=== PATIENT | female | born 1950 | race Caucasian/White ===

== ENCOUNTER 2022-01-21 11:29 | Outpatient (CLI) | payer MEDICARE, BC | END 2022-01-21 11:30 | disposition home or self-care (01) | LOC: LAB.S 11:29 | PROVIDERS: ATTEND Internal Medicine | DX: M85.80 Other specified disorders of bone density and structure, unspecified site (principal); Z78.0 Asymptomatic menopausal state | CPT/HCPCS: 82306 ==

== ENCOUNTER 2023-04-08 08:00 | Outpatient (CLI) | payer MEDICARE, BC ==
[2023-04-08 20:53] LABS: BILIRUBIN,URINE NEGATIVE (NEGATIVE); GLUCOSE, URINE (UA) NEGATIVE (NEGATIVE); KETONES,URINE (UA) NEGATIVE (NEGATIVE); LEUKOCYTE ESTERASE, URINE SMALL (NEGATIVE); NITRITE,URINE NEGATIVE (NEGATIVE); OCCULT BLOOD,URINE NEGATIVE (NEGATIVE); PROTEIN,URINE NEGATIVE (NEGATIVE); UROBILINOGEN,URINE 0.2 (NORMAL) E.U./dL (NORMAL)
[2023-04-08 20:54] LABS: CLARITY,URINE CLEAR (CLEAR)
[2023-04-08 21:31] LABS: BACTERIA,URINE Moderate /HPF (None Seen); RBC,URINE 0-5 /HPF (0-5); SQUAMOUS EPITHELIAL CELL,UR FEW Squamous (<= Few)
== END 2023-04-08 23:59 | disposition home or self-care (01) ==
LOC: LAB.S 08:00
PROVIDERS: ATTEND Internal Medicine
DX: R30.0 Dysuria (principal)
CPT/HCPCS: 81001; 87086; 87181

== ENCOUNTER 2024-09-01 12:05 | Inpatient (IN) ==
--- NOTE | 2024-09-01 12:35 | ED Physician Documentation ---
History of Present Illness Stated complaint Stated Complaint: ABD PX Chief complaint Chief Complaint: Abd Pain History obtained from History obtained from: Patient Additonal information Additional information: This is an otherwise very healthy 74-year-old woman. Last colonoscopy 4 years ago with incidental finding of diverticulosis. About 2 weeks ago she had a days worth of right leg pain associate with fevers and chills. That got better and was fine again until about 2 days ago when she has developed crampy lower abdominal pain associated with gassiness and frequent stools without overt diarrhea. The fevers and chills have not returned. No history of abdominal surgeries. Meds/Allgy Home Medications Ambulatory Orders Medication Instructions Recorded Confirmed estradiol 0.01% (0.1 mg/gram) 0.5 g vaginal .COMPLEX # 42.5 grams 08/09/24 09/01/24 vaginal cream Allergies Allergies Allergy/AdvReac Type Severity Reaction Status Date / Time No Known Drug Allergies Allergy Verified 09/01/24 12:26 PFSH Active Problems All Active Problems (Updated 09/01/24 @ 14:35 by Santana Penny MD) Diverticular disease of intestine with perforation and abscess (Acute) Abdominal pain (Acute) Dysuria (Acute) Pelvic floor instability (Acute) Social History Social History (Updated 09/01/24 @ 11:29 by Orlin Mensah DO) Smoking Status: Unknown if ever smoked Do you feel safe in your home environment?: Yes Suffered physical, verbal, emotional, or financial abuse?: No Exam Exam Vital Signs: Vital Signs x48h Temp Pulse Resp BP Pulse Ox 09/01/24 12:18 37.1 C 81 16 124/67 99 Constitutional normal general appearance and no apparent distress Respiratory breath sounds equal bilaterally, normal respiratory effort and clear to auscultation bilaterally Cardiovascular normal heart rate noted, regular rhythm noted and no murmur Gastrointestinal Mild lower abdominal tenderness without surgical signs. Results Vitals Vitals: Vital Signs - 24 hr 09/01/24 12:18 Temperature 37.1 C Temperature Source Temporal Artery Scan Pulse Rate 81 Respiratory Rate 16 Blood Pressure 124/67 O2 Saturation 99 O2 Source Room air Pain Intensity 5 Oxygen O2 Source Room air Labs Labs: Laboratory Tests 09/01/24 09/01/24 12:36 12:50 WBC 13.0 H RBC 4.24 Hgb 12.0 Hct 37.2 MCV 87.7 MCH 28.3 MCHC 32.3 RDW 13.9 Plt Count 399 MPV 9.7 Neut # (Auto) 10.3 H Lymph # (Auto) 1.5 [place] # (Auto) 1.1 H Eos # (Auto) 0.0 Baso # (Auto) 0.1 Absolute Nucleated RBC 0.00 Nucleated RBC % 0.0 Sodium 134 L Potassium 3.5 Chloride 99 L Carbon Dioxide 25 Anion Gap 10.0 BUN 12 Creatinine 0.7 Estimated GFR (MDRD) 82 L Glucose 108 H Calcium 9.7 Total Bilirubin 0.8 AST 15 ALT 11 Alkaline Phosphatase 87 Total Protein 7.9 Albumin 4.2 Globulin 3.7 Albumin/Globulin Ratio 1.1 Lipase 19 Urine Color DARK YELLOW Urine Clarity CLEAR Urine pH 6.0 Ur Specific [place] 1.025 Urine Protein 30 H Urine Glucose (UA) NEGATIVE Urine Ketones TRACE Urine Occult Blood TRACE-LYSE Urine Nitrite NEGATIVE Urine Bilirubin SMALL H Urine Urobilinogen 2 H Ur Leukocyte Esterase TRACE H Urine RBC 0-5 Urine WBC 4-5 Ur Squamous Epith Cells MOD Squamous H Urine Bacteria Few Urine Mucus Moderate Strands Ur Microscopic Review INDICATED Urine Culture Comments NOT INDICATED PD Medical Decision Making ED course ED course: This is a very healthy 74-year-old woman who had an episode of pelvic and right leg pain associate with fevers and chills 2 weeks ago and then was well again until she developed pelvic pain again a couple of days ago. Really pretty benign exam and white count of 13,000. CT imaging demonstrating diverticular abscess measuring up to 3.7 cm. Radiologist feeling it could be IR drain if indicated. Case discussed by phone with Dr. Ramirez, our on-call surgeon around 2:25 PM and he will follow along noting that it it is of borderline size for needing drainage at this time. Spoke with Dr. Junior for admission at 2:35 PM. She [place]osyn from [place]. The patient and family are counseled as to the diagnosis and need for admission. This document was made in part using voice recognition software, while efforts are made to proofread this document, sound alike an grammatical errors may occur. Discharge Plan Discharge Patient Disposition: [facility] DC/Xfer Condition: Serious Clinical Impression: Diverticular disease of intestine with perforation and abscess Prescriptions: No Action estradiol 0.01 % (0.1 mg/gram) cream 0.5 g vaginal .COMPLEX Qty: 42.5 0RF Rx Instructions: 0.5 grams vaginally three nights per week Print Language: Barbadian
--- OUTSIDE RECORDS SUMMARY | 2024-09-01 12:36 | EXTERNAL MEDICAL SUMMARY RPT | Continuity of Care Document ---
Author Organization [facility] Address [address] [place] [id number] Phone Problems date description facility 2024-09-01 12:26 Unspecified abdominal pain id [facility] Social History date description facility
[2024-09-01 12:49] LABS: BILIRUBIN,URINE SMALL (NEGATIVE); CLARITY,URINE CLEAR (CLEAR); GLUCOSE, URINE (UA) NEGATIVE (NEGATIVE); KETONES,URINE (UA) TRACE mg/dL (NEGATIVE); LEUKOCYTE ESTERASE, URINE TRACE (NEGATIVE); NITRITE,URINE NEGATIVE (NEGATIVE); OCCULT BLOOD,URINE TRACE-LYSE (NEGATIVE); PROTEIN,URINE 30 mg/dL (NEGATIVE); UROBILINOGEN,URINE 2 E.U./dL (NORMAL)
[2024-09-01 12:56] LABS: BASOPHILS # (AUTO) 0.1 10^3/uL (0.0-0.1); BASOPHILS % (AUTO) 0.5 %; EOSINOPHILS % (AUTO) 0.2 %; HCT - HEMATOCRIT 37.2 % (37.0-47.0); LYMPHOCYTES # (AUTO) 1.5 10^3/uL (1.5-3.5); LYMPHOCYTES % (AUTO) 11.1 %; MEAN CORPUSCULAR HEMOGLOBIN 28.3 pg (27.0-31.0); MEAN CORPUSCULAR HGB CONC 32.3 g/dL (32.0-36.0); MEAN CORPUSCULAR VOLUME 87.7 fL (81.0-99.0); MEAN PLATELET VOLUME 9.7 fL (7.9-10.8); MONOCYTES # (AUTO) 1.1 10^3/uL (0.0-1.0); MONOCYTES % (AUTO) 8.7 %; NEUTROPHILS # (AUTO) 10.3 10^3/uL (1.5-6.6); NEUTROPHILS % (AUTO) 79.2 %; PLT - PLATELET COUNT 399 10^3/uL (130-450); RED BLOOD COUNT 4.24 10^6/uL (4.20-5.40); RED CELL DISTRIBUTION WIDTH 13.9 % (12.0-15.0)
[2024-09-01 12:58] LABS: BACTERIA,URINE Few /HPF (None Seen); MUCUS,URINE Moderate Strands; RBC,URINE 0-5 /HPF (0-5); SQUAMOUS EPITHELIAL CELL,UR MOD Squamous (<= Few)
[2024-09-01 13:12] LABS: ALBUMIN 4.2 g/dL (3.2-5.5); ALBUMIN/GLOBULIN RATIO 1.1 (1.0-2.2); BILIRUBIN,TOTAL 0.8 mg/dL (0.2-1.0); CALCIUM 9.7 mg/dL (8.5-10.3); CREATININE 0.7 mg/dL (0.6-1.3); POTASSIUM 3.5 mmol/L (3.5-4.5); TOTAL PROTEIN 7.9 g/dL (6.4-8.9)
[2024-09-01] MEDS ORDERED: iohexoL-300 100 ML VIAL ONE (13:20)
[2024-09-01] MEDS: iohexoL-300 100 ML VIAL IVP ONE (13:49)
--- NOTE | 2024-09-01 14:12 | CT Report ---
PROCEDURE: CT Abdomen/Pelvis W INDICATIONS: IV only, low abd pain CONTRAST: omni 300, 100 TECHNIQUE: After the administration of intravenous contrast, a CT scan of the abdomen and pelvis was performed. Images were recorded and evaluated at appropriate window settings. Reformats: coronal and sagittal. For radiation dose reduction, the following was used: automated exposure control, adjustment of mA and/or kV according to patient size. COMPARISON: None. FINDINGS: Image quality: Diagnostic. Lower chest: Unremarkable. Liver: No solid mass. Gallbladder: Within normal limits. Biliary tree: No intrahepatic or extrahepatic dilation, accounting for age. Spleen: No splenomegaly. Pancreas: No pancreatic ductal dilation. Adrenals: No adrenal nodule. Kidneys and ureters: No hydronephrosis. No renal cystic lesion which requires follow up. No solid mass. Stomach, bowel and peritoneum: Moderate wall thickening can be seen involving the rectosigmoid colon, with an adjacent rim-enhancing fluid collection. The fluid collection measures 3.7 x 2.8 cm in greatest axial dimension, the cranial caudal extent of 3.4 cm.. No angela free air can be seen. No significant free fluid is seen. A marker is placed upon the area of pain. At this site, no fractures are seen. No fractures or dislocations are seen elsewhere. No suspicious bony lesions. Age-appropriate degenerative changes are seen. The overlying soft tissues appear unremarkable. Proximal No dilated loops of small bowel are seen. Lymph nodes: No central or retroperitoneal adenopathy. Vessels: No infrarenal aortic aneurysm. Patent portal vein. PELVIS Reproductive organs: Unremarkable. Bladder: No abnormal wall thickening. Pelvic lymph nodes: No pelvic adenopathy by size criteria. Bones: No aggressive osseous abnormality. Minimal levoconvex lumbar spinal curvature is seen. Lower lumbar spine degenerative changes are seen. Other: No significant ventral or inguinal hernia. IMPRESSION: Perforated diverticulitis, with an associated abscess measuring up to 3.7 cm. This abscess is potentially drainable percutaneously, with a right transgluteal approach. Note: HIPAA-compliant text message sent to the cellular phone of Dr. Penny at 2:10 PM [place] time on 09/01/2024. Reviewed by: John Russo MD on 09/01/2024 1:11 PM [facility] Approved by: John Russo MD on 09/01/2024 1:11 PM [facility] Station ID: [id number]
[2024-09-01] MEDS: PIPERACILLIN/TAZOBACTAM 3.375 GM in SODIUM CHLORIDE 0.9% MINIBAG 100 ML IV STA (14:17)
[2024-09-01] MEDS ORDERED: SODIUM CHLORIDE FLUSH 0.9% 10 ML SYRINGE IVP PRN (15:04)
[2024-09-01] MEDS ORDERED: ONDANSETRON ODT 4 MG TABLET TL PRN (15:04)
[2024-09-01] MEDS ORDERED: MORPHINE 2 MG/ML CARPUJECT IVP PRN (15:04)
--- NOTE | 2024-09-01 15:13 | PROVIDER PROGRESS NOTE ---
Subjective Prog Note Date Prog Note Date: 09/01/24 Prog Note Time: 15:13 Current Medications Current Medications Current Medications: Current Medications Generic Name Dose Route Start Last Admin Trade Name Freq PRN Reason Stop Dose Admin Acetaminophen 650 mg 09/01/24 15:04 Acetaminophen 325 Mg Tablet PO Q4HR PRN Pain 1 to 4, or Fever Piperacillin Sod/Tazobactam 100 mls @ 200 mls/hr 09/01/24 16:00 Sod 3.375 gm/ Sodium Chloride IV Q6H POLA Morphine Sulfate 2 mg 09/01/24 15:04 Morphine 2 Mg/Ml Carpuject IVP Q2HR PRN Pain 8 to 10 Ondansetron HCl 4 mg 09/01/24 15:04 Ondansetron Odt 4 Mg Tablet TL Q6HR PRN Nausea / Vomiting Oxycodone HCl 5 mg 09/01/24 15:04 Oxycodone 5 Mg Tablet PO Q4HR PRN Pain 5 to 7 Sodium Chloride 10 ml 09/01/24 15:04 Sodium Chloride Flush 0.9% 10 Ml Syringe IVP PRN PRN NEEDED PER PROVIDER ORDERS Sodium Chloride 10 ml 09/01/24 17:00 Sodium Chloride Flush 0.9% 10 Ml Syringe IVP 0100,0900,1700 [facility] Objective Vital Signs/Intake & Output Vital Signs: Vital Signs x48h Temp Pulse Resp BP Pulse Ox 09/01/24 14:26 86 16 119/64 99 09/01/24 12:18 37.1 C 81 16 124/67 99 Intake & Output: Intake & Output 08/29/24 08/30/24 08/31/24 09/01/24 23:59 23:59 23:59 23:59 Intake Total 100 / 100 Balance 100 / 100 Weight (kg) 55.792 kg Lab Results 09/01/24 12:50 09/01/24 12:50 Other Labs: Lab Results x24hrs 09/01/24 09/01/24 Range/Units 12:50 12:36 WBC 13.0 H (4.8-10.8) x10^3/uL RBC 4.24 (4.20-5.40) 10^6/uL Hgb 12.0 (12.0-16.0) g/dL Hct 37.2 (37.0-47.0) % MCV 87.7 (81.0-99.0) fL MCH 28.3 (27.0-31.0) pg MCHC 32.3 (32.0-36.0) g/dL RDW 13.9 (12.0-15.0) % Plt Count 399 (130-450) 10^3/uL MPV 9.7 (7.9-10.8) fL Neut # (Auto) 10.3 H (1.5-6.6) 10^3/uL Lymph # (Auto) 1.5 (1.5-3.5) 10^3/uL [place] # (Auto) 1.1 H (0.0-1.0) 10^3/uL Eos # (Auto) 0.0 (0.0-0.7) 10^3/uL Baso # (Auto) 0.1 (0.0-0.1) 10^3/uL Absolute Nucleated RBC 0.00 x10^3/uL Nucleated RBC % 0.0 /100WBC Sodium 134 L (135-145) mmol/L Potassium 3.5 (3.5-4.5) mmol/L Chloride 99 L (101-111) mmol/L Carbon Dioxide 25 (21-32) mmol/L Anion Gap 10.0 (6-13) BUN 12 (6-20) mg/dL Creatinine 0.7 (0.6-1.3) mg/dL Estimated GFR (MDRD) 82 L (>89) Glucose 108 H (74-104) mg/dL Calcium 9.7 (8.5-10.3) mg/dL Total Bilirubin 0.8 (0.2-1.0) mg/dL AST 15 (10-42) IU/L ALT 11 (10-60) IU/L Alkaline Phosphatase 87 (42-121) IU/L Total Protein 7.9 (6.4-8.9) g/dL Albumin 4.2 (3.2-5.5) g/dL Globulin 3.7 (2.1-4.2) g/dL Albumin/Globulin Ratio 1.1 (1.0-2.2) Lipase 19 (11-82) U/L Urine Color DARK YELLOW Urine Clarity CLEAR (CLEAR) Urine pH 6.0 (5.0-7.5) PH Ur Specific [place] 1.025 (1.002-1.030) Urine Protein 30 H (NEGATIVE) mg/dL Urine Glucose (UA) NEGATIVE (NEGATIVE) mg/dL Urine Ketones TRACE (NEGATIVE) mg/dL Urine Occult Blood TRACE-LYSE (NEGATIVE) Urine Nitrite NEGATIVE (NEGATIVE) Urine Bilirubin SMALL H (NEGATIVE) Urine Urobilinogen 2 H (NORMAL) E.U./dL Ur Leukocyte Esterase TRACE H (NEGATIVE) Urine RBC 0-5 (0-5) /HPF Urine WBC 4-5 (0-5) /HPF Ur Squamous Epith Cells MOD Squamous H (<= Few) Urine Bacteria Few (None Seen) /HPF Urine Mucus Moderate Strands Ur Microscopic Review INDICATED Urine Culture Comments NOT INDICATED
--- NOTE | 2024-09-01 15:17 | HISTORY & PHYSICAL EXAMINATION ---
Chief Complaint Chief Complaint Chief Complaint: Abdominal pain History of Present Illness Admitted From Admitted From:: ED History Obtained From Records Reviewed: ED History obtained from: Patient, Dr. Zartae - ED attending Exam Limitations: none History of Present Illness HPI Comment/Other: Patient is a healthy 74-year-old female with a PMH of diverticulosis who presents to the ED with a 2-day history of right lower quadrant abdominal pain that radiates into the right groin. This follows a series of similar episodes over the last few weeks that was initially associated with fever that only lasted for 1 day followed by improvement of the abdominal pain then intermittent returns. Patient states the pain is moderate to severe at times, and intermittent and crampy in nature. It is not alleviated with any particular thing or aggravated by any particular thing. With the exception of the fever almost 2 weeks ago, she has not had any other associated fever along with that. She denies any nausea or vomiting. Denies any GI history or previous abdominal surgeries. She denies any prior episodes of diverticulitis. Here in the ED, the patient was hemodynamically stable. Her lab work was remarkable for a WBC of [address] abdomen pelvis does show evidence of a perforated diverticular abscess measuring approximately 3 cm. ED attending consulted general surgery regarding this finding and it was determined that surgical intervention was not immediately necessary. The radiologist did comment that this abscess would be amenable to IR drainage in the ED attending, Dr. Godfrey, discussed this with the radiologist on-call and he confirmed that if necessary this could be done at this facility, but per surgery otherwise this could be managed with IV antibiotics and the patient was started on IV Zosyn in the ED and admission was requested. Meds/Allgy Home Medications Ambulatory Orders Medication Instructions Recorded Confirmed estradiol 0.01% (0.1 mg/gram) 0.5 g vaginal .COMPLEX # 42.5 grams 08/09/24 09/01/24 vaginal cream Allergies Allergies Allergy/AdvReac Type Severity Reaction Status Date / Time No Known Drug Allergies Allergy Verified 09/01/24 12:26 PFSH Active Problems All Active Problems (Updated 09/01/24 @ 15:50 by Russel Junior MD) Diverticular disease of intestine with perforation and abscess (Acute) Abdominal pain (Acute) Dysuria (Acute) Pelvic floor instability (Acute) Social History Social History (Updated 09/01/24 @ 11:29 by SEVERO Kirkpatrick Smoking Status: Unknown if ever smoked Do you feel safe in your home environment?: Yes Suffered physical, verbal, emotional, or financial abuse?: No POLST Patient has POLST: No POLST Status: Full Code Review of Systems Status of ROS: 10 or more systems reviewed and unremarkable except as noted in history and below Prior Level of Functionality: At baseline she is healthy, independent, and lives alone Exam Exam Vital Signs: Vital Signs x48h Temp Pulse Resp BP Pulse Ox 09/01/24 14:26 86 16 119/64 99 09/01/24 12:18 37.1 C 81 16 124/67 99 Constitutional normal general appearance HENMT normocephalic and head/scalp atraumatic Eyes PERRL and EOMs intact bilaterally Neck/C-Spine visual inspection normal Respiratory breath sounds equal bilaterally, normal respiratory effort, clear to auscultation bilaterally and no wheezes Cardiovascular normal heart rate noted, no gallop, no rub and no murmur Gastrointestinal abdomen soft to palpation Genitourinary no CVA tenderness Extremities normal to inspection Neurology electronics repair technician II-XII intact Psychiatry mental status grossly normal and oriented x3 Skin skin color normal Conclusion/Plan Problem List (1) Diverticular disease of intestine with perforation and abscess: Plan: * Patient is not septic and is hemodynamically stable * WBC is 13 remainder of labs are reassuring * CT scan of the abdomen does confirm perforated diverticulum with a relatively small abscess which per radiology is amenable to drainage should the patient progress in such a manner to warrant the procedure * This has been discussed with general surgery as well as radiology by the ED attending * I also discussed interventional radiology drainage with the patient and she prefers to avoid procedure if at all possible * Having said this, we will admit the patient to MedSurg, continue IV Zosyn, follow her clinically with serial labs and abdominal exams with as needed pain meds and antiemetics * Most likely I will keep her n.p.o. after midnight tomorrow night in anticipation of the potential for need for interventional radiology drainage on Tuesday and if patient clinically improves to the extent this is no longer needed, we will continue with antibiotic management (2) Abdominal pain: Plan: * Secondary to above, continue as needed pain meds as stated Qualifiers: Abdominal location: right lower quadrant Qualified Code(s): R10.31 - Right lower quadrant pain Lab Results Lab results reviewed: Yes 09/01/24 12:50 09/01/24 12:50 Diagnostic Imaging Results Diagnostic Imaging Results: positive Final report reviewed EKG Results EKG Interpreted Independently: Yes
[2024-09-01] MEDS: ACETAMINOPHEN 325 MG TABLET PO PRN (15:34)
--- NOTE | 2024-09-01 17:10 | CONSULTATION NOTE ---
Chief Complaint Chief Complaint Chief Complaint: abdominal pain History of Present Illness Admitted From Admitted From:: ed History Obtained From Records Reviewed: yes History obtained from: pt Exam Limitations: none History of Present Illness HPI Comment/Other: waxing and waning abdominal pain for about a month. at times she was ok and able to eat ok. she thought she may have had norovirus. a couple days ago she had a fever and pain was worse. seen in the ed. ct scan diverticulitis with 4 cm pelvic abscess. colonoscopy 4 years ago diverticulosis and no polyps PFSH Active Problems All Active Problems (Updated 09/01/24 @ 15:50 by Russel Junior MD) Diverticular disease of intestine with perforation and abscess (Acute) Abdominal pain (Acute) Dysuria (Acute) Pelvic floor instability (Acute) Social History Social History (Updated 09/01/24 @ 11:29 by Orlin Mensah DO) Smoking Status: Never smoker Relationship: Level: Independent Do you feel safe in your home environment?: Yes Suffered physical, verbal, emotional, or financial abuse?: No POLST Patient has POLST: No POLST Status: Full Code Meds/Allgy Home Medications Ambulatory Orders Medication Instructions Recorded Confirmed estradiol 0.01% (0.1 mg/gram) 0.5 g vaginal .COMPLEX # 42.5 grams 08/09/24 09/01/24 vaginal cream Allergies Allergies Allergy/AdvReac Type Severity Reaction Status Date / Time No Known Drug Allergies Allergy Verified 09/01/24 12:26 Results Lab Results Lab results reviewed: Yes 09/01/24 12:50 09/01/24 12:50 Other Lab Results: Lab Results x24hrs 09/01/24 09/01/24 Range/Units 12:50 12:36 WBC 13.0 H (4.8-10.8) x10^3/uL RBC 4.24 (4.20-5.40) 10^6/uL Hgb 12.0 (12.0-16.0) g/dL Hct 37.2 (37.0-47.0) % MCV 87.7 (81.0-99.0) fL MCH 28.3 (27.0-31.0) pg MCHC 32.3 (32.0-36.0) g/dL RDW 13.9 (12.0-15.0) % Plt Count 399 (130-450) 10^3/uL MPV 9.7 (7.9-10.8) fL Neut # (Auto) 10.3 H (1.5-6.6) 10^3/uL Lymph # (Auto) 1.5 (1.5-3.5) 10^3/uL [place] # (Auto) 1.1 H (0.0-1.0) 10^3/uL Eos # (Auto) 0.0 (0.0-0.7) 10^3/uL Baso # (Auto) 0.1 (0.0-0.1) 10^3/uL Absolute Nucleated RBC 0.00 x10^3/uL Nucleated RBC % 0.0 /100WBC Sodium 134 L (135-145) mmol/L Potassium 3.5 (3.5-4.5) mmol/L Chloride 99 L (101-111) mmol/L Carbon Dioxide 25 (21-32) mmol/L Anion Gap 10.0 (6-13) BUN 12 (6-20) mg/dL Creatinine 0.7 (0.6-1.3) mg/dL Estimated GFR (MDRD) 82 L (>89) Glucose 108 H (74-104) mg/dL Calcium 9.7 (8.5-10.3) mg/dL Total Bilirubin 0.8 (0.2-1.0) mg/dL AST 15 (10-42) IU/L ALT 11 (10-60) IU/L Alkaline Phosphatase 87 (42-121) IU/L Total Protein 7.9 (6.4-8.9) g/dL Albumin 4.2 (3.2-5.5) g/dL Globulin 3.7 (2.1-4.2) g/dL Albumin/Globulin Ratio 1.1 (1.0-2.2) Lipase 19 (11-82) U/L Urine Color DARK YELLOW Urine Clarity CLEAR (CLEAR) Urine pH 6.0 (5.0-7.5) PH Ur Specific [place] 1.025 (1.002-1.030) Urine Protein 30 H (NEGATIVE) mg/dL Urine Glucose (UA) NEGATIVE (NEGATIVE) mg/dL Urine Ketones TRACE (NEGATIVE) mg/dL Urine Occult Blood TRACE-LYSE (NEGATIVE) Urine Nitrite NEGATIVE (NEGATIVE) Urine Bilirubin SMALL H (NEGATIVE) Urine Urobilinogen 2 H (NORMAL) E.U./dL Ur Leukocyte Esterase TRACE H (NEGATIVE) Urine RBC 0-5 (0-5) /HPF Urine WBC 4-5 (0-5) /HPF Ur Squamous Epith Cells MOD Squamous H (<= Few) Urine Bacteria Few (None Seen) /HPF Urine Mucus Moderate Strands Ur Microscopic Review INDICATED Urine Culture Comments NOT INDICATED Diagnostic Imaging Results Diagnostic Imaging Results: positive Read independently Diagnostic Imaging Results Comments: low sigmoid diverticulitis with contained 4 cm abscess. no small bowel dilation. Review of Systems Status of ROS: 10 or more systems reviewed and unremarkable except as noted in history and below Exam Exam Vital Signs: Vital Signs x48h Temp Pulse Pulse Resp BP BP Pulse Ox 09/01/24 15:28 36.8 C 79 16 111/68 93 09/01/24 14:26 86 16 119/64 99 09/01/24 12:18 37.1 C 81 16 124/67 99 Constitutional normal general appearance and no apparent distress HENMT normocephalic and head/scalp atraumatic Eyes PERRL, EOMs intact bilaterally and no scleral icterus Neck/C-Spine trachea midline Respiratory normal respiratory effort Gastrointestinal nondistended Psychiatry oriented x3, thought process normal, cooperative and affect normal Conclusion/Plan Problem List (1) Diverticular disease of intestine with perforation and abscess: Plan: first time diverticulitis. we discussed it usually never happens again and surgery is indicated for recurrent bouts or free perforation which she does not have. we also discussed her abscess might get better with antibiotics; however, it might expand needing ct guided drainage. we also discussed it sometimes takes 2 weeks for the inflammation to improve where people can eat a normal diet again. diet as tolerated. we discussed if she is uncomfortable, burping, cramping she should go to a liquid diet. will follow. if not improving daily over the next several days recommend repeat ct scan. (2) Abdominal pain: Qualifiers: Abdominal location: right lower quadrant Qualified Code(s): R10.31 - Right lower quadrant pain Lab Results Lab results reviewed: Yes 09/01/24 12:50 09/01/24 12:50 Diagnostic Imaging Results Diagnostic Imaging Results: positive Read independently
[2024-09-01] MEDS: PIPERACILLIN/TAZOBACTAM 3.375 GM in SODIUM CHLORIDE 0.9% MINIBAG 100 ML IV SCH (17:35)
[2024-09-01] MEDS: SODIUM CHLORIDE FLUSH 0.9% 10 ML SYRINGE IVP SCH (17:35)
--- OUTSIDE RECORDS SUMMARY | 2024-09-01 18:51 | EXTERNAL MEDICAL SUMMARY RPT | Continuity of Care Document ---
Author Organization [facility] Address [address] [place] [id number] Phone Problems date description facility 2024-09-01 12:26 Unspecified abdominal pain [facility] 2024-09-01 14:53 Diverticulitis of in testine, part unspecified, with perforation and abscess without bleeding [facility] 2024-09-01 14:53 Unspecified abdominal pain [facility] 2024-09-01 15:23 Diverticulitis of in testine, part unspecified, with perforation and abscess without bleeding [facility] 2024-09-01 15:23 Unspecified abdominal pain [facility] Results/Labs test date facility value unit notes Result panel 1 RBC,URINE 2024-09-01 12:36 [facility] 0-5 /hpf (missing) SPECIFIC GRAVITY,URINE 2024-09-01 12:36 [facility] 1.025 (missing) (missing) UROBILINOGEN,URIN E 2024-09-01 12:36 [facility] 2 e.u./dl (missing) PROTEIN,URINE 2024-09-01 12:36 [facility] 30 mg/dl (missing) WBC,URINE 2024-09-01 12:36 [facility] 4-5 /hpf (missing) PH,URINE 2024-09-01 12:36 [facility] 6.0 ph (missing) CLARITY,URINE 2024-09-01 12:36 [facility] CLEAR (missing) (missing) COLOR,URINE 2024-09-01 12:36 [facility] DARK YELLOW (missing) URINE CLEAN CATCH BACTERIA,URINE 2024-09-01 12:36 [facility] Few /hpf (missing) URINE MICROSCOPIC INDICATED? 2024-09-01 12:36 [facility] INDICATED (missing) (missing) SQUAMOUS EPITHELIAL CELL,UR 2024-09-01 12:36 [facility] MOD Squamous (missing) (missing) MUCUS,URINE 2024-09-01 12:36 [facility] Moderate Strands (missing) (missing) NITRITE,URINE 2024-09-01 12:36 [facility] NEGATIVE (missing) (missing) GLUCOSE, URINE (UA) 2024-09-01 12:36 [facility] NEGATIVE mg/dl (missing) UR CULTURE IF IND 2024-09-01 12:36 [facility] NOT INDICATED (missing) A culture is not indicated on urine samples contaminated with greater than a few Squamous Epithelial cells/HPF. A mid-stream clean catch urine for culture is recommended. BILIRUBIN,URINE 2024-09-01 12:36 [facility] SMALL (missing) Bilirubin can be influenced by color interference. Please correlate positive results with clinical presentation LEUKOCYTE ESTERASE, URINE 2024-09-01 12:36 [facility] TRACE (missing) (missing) KETONES,URINE (UA) 2024-09-01 12:36 [facility] TRACE mg/dl (missing) OCCULT BLOOD,URINE 2024-09-01 12:36 [facility] TRACE-LYSE (missing) (missing) Result panel 2 NUCLEATED RED BLOOD CELLS AUTO 2024-09-01 12:50 [facility] 0.0 /100wbc (missing) EOSINOPHILS # (AUTO) 2024-09-01 12:50 [facility] 0.0 10 3/ul (missing) NRBC ABSOLUTE COUNT (AUTO) 2024-09-01 12:50 [facility] 0.00 x10 3/ul (missing) BASOPHILS # (AUTO) 2024-09-01 12:50 [facility] 0.1 10 3/ul (missing) CREATININE 2024-09-01 12:50 [facility] 0.7 mg/dl As of October 2022 testing method has changed, this may include reference ranges. BILIRUBIN,TOTAL 2024-09-01 12:50 [facility] 0.8 mg /dl As of October 2022 testing method has changed, this may include reference ranges. ALBUMIN/GLOBULIN RATIO 2024-09-01 12:50 [facility] 1.1 (missing) (missing) MONOCYTES # (AUTO) 2024-09-01 12:50 [facility] 1.1 10 3/ul (missing) LYMPHOCYTES # (AUTO) 2024-09-01 12:50 [facility] 1.5 10 3/ul (missing) ANION GAP 2024-09-01 12:50 [facility] 10.0 (missing ) (missing) NEUTROPHILS # (AUTO) 2024-09-01 12:50 [facility] 10.3 10 3/ul (missing) GLUCOSE 2024-09-01 12:50 [facility] 108 mg/dl As of October 2022 testing method has changed, this may include reference ranges. ALT ALANINE AMINOTRANSFERASE 2024-09-01 12:50 [facility] 11 iu/l As of October 2022 testing method has changed, this may include reference ranges. BUN - BLOOD UREA NITROGEN 2024-09-01 12[facility]/dl As of Oct testing method has changed, this may include reference ranges. HGB - HEMOGLOBIN 2024-09-01 12:50 [facility] 12.0 g /dl (missing) WHITE BLOOD COUNT 2024-09-01 12:50 [facility] 13.0 x10 3/ul (missing) RED CELL DISTRIBUTION WIDTH 2024-09-01 12:50 [facility] 13.9 % (missing) SODIUM 2024-09-01 12:50 [facility] 134 mmol/l (missing) AST ASPARTATE AMINOTRANSFERASE 2024-09-01 12:50 [facility] 15 iu/l As of October 2022 testing method has changed, this may include reference ranges. LIPASE 2024-09-01 12:50 [facility] 19 u/l As of October 2022 testing method has changed, this may include reference ranges. CARBON DIOXIDE - CO2 2024-09-01 12:50 [facility] 25 mmol/l As of October 2022 testing method has changed, this may include reference ranges. MEAN CORPUSCULAR HEMOGLOBIN 2024-09-01 12:50 [facility] 28.3 pg (missing) POTASSIUM 2024-09-01 12:50 [facility] 3.5 mmol/l As of October 2022 testing method has changed, this may include reference ranges. GLOBULIN 2024-09-01 12:50 [facility] 3.7 g/dl (missing) MEAN CORPUSCULAR HGB CONC 2024-09-01 12:50 [facility] 32.3 g/dl (missing) HCT - HEMATOCRIT 2024-09-01 12:50 [facility] 37.2 % (missing) PLT - PLATELET COUNT 2024-09-01 12:50 [facility] 399 10 3/ul (missing) ALBUMIN 2024-09-01 12:50 [facility] 4.2 g/dl As of October 2022 testing method has changed, this may include reference ranges. RED BLOOD COUNT 2024-09-01 12:50 [facility] 4.24 10 6/ul (missing) TOTAL PROTEIN 2024-09-01 12:50 [facility] 7.9 g/dl As of October 2022 testing method has changed, this may include reference ranges. GFR - MDRD 2024-09-01 12:50 [facility] ([facility]) Social History date description facility
[2024-09-01] MEDS: traZODone 50 MG TABLET PO SCH (21:55)
[2024-09-02] MEDS: oxyCODONE 5 MG TABLET PO PRN (00:05)
[2024-09-02 05:40] LABS: BASOPHILS % (AUTO) 0.4 %; EOSINOPHILS # (AUTO) 0.1 10^3/uL (0.0-0.7); EOSINOPHILS % (AUTO) 0.7 %; HCT - HEMATOCRIT 33.6 % (37.0-47.0); HGB - HEMOGLOBIN 10.7 g/dL (12.0-16.0); LYMPHOCYTES # (AUTO) 1.6 10^3/uL (1.5-3.5); MEAN CORPUSCULAR HEMOGLOBIN 28.1 pg (27.0-31.0); MEAN CORPUSCULAR HGB CONC 31.8 g/dL (32.0-36.0); MEAN CORPUSCULAR VOLUME 88.2 fL (81.0-99.0); MEAN PLATELET VOLUME 9.8 fL (7.9-10.8); MONOCYTES # (AUTO) 1.1 10^3/uL (0.0-1.0); MONOCYTES % (AUTO) 11.1 %; NEUTROPHILS # (AUTO) 6.9 10^3/uL (1.5-6.6); NEUTROPHILS % (AUTO) 71.5 %; PLT - PLATELET COUNT 310 10^3/uL (130-450); RED BLOOD COUNT 3.81 10^6/uL (4.20-5.40); RED CELL DISTRIBUTION WIDTH 13.8 % (12.0-15.0); WHITE BLOOD COUNT 9.7 x10^3/uL (4.8-10.8)
[2024-09-02 05:54] LABS: CALCIUM 8.7 mg/dL (8.5-10.3); CREATININE 0.8 mg/dL (0.6-1.3); POTASSIUM 3.5 mmol/L (3.5-4.5)
--- NOTE | 2024-09-02 13:49 | PROVIDER PROGRESS NOTE ---
Subjective Subjective Pt reports feeling: Improved Subjective: feels well. minimal discomfort. tolerating diet. no nausea Current Medications Current Medications Current Medications: Current Medications Generic Name Dose Route Start Last Admin Trade Name Freq PRN Reason Stop Dose Admin Acetaminophen 650 mg 09/01/24 15:04 09/01/24 15:34 Acetaminophen 325 Mg Tablet PO 650 mg Q4HR PRN Administration Pain 1 to 4, or Fever Piperacillin Sod/Tazobactam 100 mls @ 25 mls/hr 09/01/24 18:00 09/02/24 09:33 Sod 3.375 gm/ Sodium Chloride IV 25 mls/hr Q8H POLA Administration Morphine Sulfate 2 mg 09/01/24 15:04 Morphine 2 Mg/Ml Carpuject IVP Q2HR PRN Pain 8 to 10 Ondansetron HCl 4 mg 09/01/24 15:04 Ondansetron Odt 4 Mg Tablet TL Q6HR PRN Nausea / Vomiting Oxycodone HCl 5 mg 09/01/24 15:04 09/02/24 00:05 Oxycodone 5 Mg Tablet PO 5 mg Q4HR PRN Administration Pain 5 to 7 Sodium Chloride 10 ml 09/01/24 15:04 Sodium Chloride Flush 0.9% 10 Ml Syringe IVP PRN PRN NEEDED PER PROVIDER ORDERS Sodium Chloride 10 ml 09/01/24 17:00 09/02/24 09:34 Sodium Chloride Flush 0.9% 10 Ml Syringe IVP 10 ml 0100,0900,1700 POLA Administration Trazodone HCl 50 mg 09/01/24 21:50 09/01/24 21:55 Trazodone 50 Mg Tablet PO 50 mg QPM POLA Administration Objective Vital Signs/Intake & Output Reviewed Vital Signs: Yes Vital Signs: Vital Signs x48h Temp Pulse Resp BP Pulse Ox 09/02/24 08:36 17 105/62 99 09/02/24 08:04 36.7 C 72 16 94/57 L 99 Intake & Output: Intake & Output 08/30/24 08/31/24 09/01/24 09/02/24 23:59 23:59 23:59 23:59 Intake Total 636 / 636 320 / 320 Balance 636 / 636 320 / 320 Weight (kg) 56.5 kg Objective General Appearance: positive No acute distress and Alert Neck: positive Trachea midline Respiratory: positive No respiratory distress Abdomen: positive No distention Neurologic/Psychiatric: positive Oriented x3 Lab Results 09/02/24 05:08 09/02/24 05:08 Other Labs: Lab Results x24hrs 09/02/24 Range/Units 05:08 WBC 9.7 (4.8-10.8) x10^3/uL RBC 3.81 L (4.20-5.40) 10^6/uL Hgb 10.7 L (12.0-16.0) g/dL Hct 33.6 L (37.0-47.0) % MCV 88.2 (81.0-99.0) fL MCH 28.1 (27.0-31.0) pg MCHC 31.8 L (32.0-36.0) g/dL RDW 13.8 (12.0-15.0) % Plt Count 310 (130-450) 10^3/uL MPV 9.8 (7.9-10.8) fL Neut # (Auto) 6.9 H (1.5-6.6) 10^3/uL Lymph # (Auto) 1.6 (1.5-3.5) 10^3/uL [place] # (Auto) 1.1 H (0.0-1.0) 10^3/uL Eos # (Auto) 0.1 (0.0-0.7) 10^3/uL Baso # (Auto) 0.0 (0.0-0.1) 10^3/uL Absolute Nucleated RBC 0.00 x10^3/uL Nucleated RBC % 0.0 /100WBC Sodium 134 L (135-145) mmol/L Potassium 3.5 (3.5-4.5) mmol/L Chloride 102 (101-111) mmol/L Carbon Dioxide 25 (21-32) mmol/L Anion Gap 7.0 (6-13) BUN 15 (6-20) mg/dL Creatinine 0.8 (0.6-1.3) mg/dL Estimated GFR (MDRD) 71 L (>89) Glucose 110 H (74-104) mg/dL Calcium 8.7 (8.5-10.3) mg/dL Assessment/Plan Problem List (1) Diverticular disease of intestine with perforation and abscess: Impression: doing exceptionally well. we discussed slow and easy with the diet and when her pain and symptoms are completely resolved high fiber diet; 35 gms fiber per day. we also discussed if she is not improving daily she will need another ct scan with possible radiology drainage infected fluid pocket. likely can go home tomorrow on oral antibiotics if she continues to do well. she does not feel she is well enough to go home today. she lives alone. (2) Abdominal pain: Qualifiers: Abdominal location: right lower quadrant Qualified Code(s): R10.31 - Right lower quadrant pain
--- NOTE | 2024-09-02 14:15 | PROVIDER PROGRESS NOTE ---
Subjective Prog Note Date Prog Note Date: 09/02/24 Prog Note Time: 09:15 Subjective Pt reports feeling: Improved Subjective: Patient reports improvement in her lower abdominal pain and complete resolution of the right groin pain. She has used 1 dose of oxycodone overnight, no subjective fever, nausea or vomiting. Current Medications Current Medications Current Medications: Current Medications Generic Name Dose Route Start Last Admin Trade Name Freq PRN Reason Stop Dose Admin Acetaminophen 650 mg 09/01/24 15:04 09/01/24 15:34 Acetaminophen 325 Mg Tablet PO 650 mg Q4HR PRN Administration Pain 1 to 4, or Fever Piperacillin Sod/Tazobactam 100 mls @ 25 mls/hr 09/01/24 18:00 09/02/24 13:45 Sod 3.375 gm/ Sodium Chloride IV Infused Q8H POLA Infusion Morphine Sulfate 2 mg 09/01/24 15:04 Morphine 2 Mg/Ml Carpuject IVP Q2HR PRN Pain 8 to 10 Ondansetron HCl 4 mg 09/01/24 15:04 Ondansetron Odt 4 Mg Tablet TL Q6HR PRN Nausea / Vomiting Oxycodone HCl 5 mg 09/01/24 15:04 09/02/24 00:05 Oxycodone 5 Mg Tablet PO 5 mg Q4HR PRN Administration Pain 5 to 7 Sodium Chloride 10 ml 09/01/24 15:04 Sodium Chloride Flush 0.9% 10 Ml Syringe IVP PRN PRN NEEDED PER PROVIDER ORDERS Sodium Chloride 10 ml 09/01/24 17:00 09/02/24 09:34 Sodium Chloride Flush 0.9% 10 Ml Syringe IVP 10 ml 0100,0900,1700 POLA Administration Trazodone HCl 50 mg 09/01/24 21:50 09/01/24 21:55 Trazodone 50 Mg Tablet PO 50 mg QPM POLA Administration Objective Vital Signs/Intake & Output Reviewed Vital Signs: Yes Vital Signs: Vital Signs x48h Temp Pulse Resp BP Pulse Ox 09/02/24 08:36 17 105/62 99 09/02/24 08:04 36.7 C 72 16 94/57 L 99 Intake & Output: Intake & Output 08/30/24 08/31/24 09/01/24 09/02/24 23:59 23:59 23:59 23:59 Intake Total 636 / 636 420 / 420 Balance 636 / 636 420 / 420 Weight (kg) 56.5 kg Objective General Appearance: positive No acute distress and Alert Eyes Bilateral: positive Normal inspection Neck: positive Nml inspection Respiratory: positive No respiratory distress and Breath sounds nml; negative Wheezes Cardiovascular: positive Regular rate & rhythm, No murmur and No gallop Abdomen: positive Non-tender, No organomegaly, Nml bowel sounds and No distention Skin: positive Color nml Extremities: positive Non-tender, Nml appearance and No pedal edema Neurologic/Psychiatric: positive Oriented x3, CN's nml (2-12) and Mood/affect nml Lab Results 09/02/24 05:08 09/02/24 05:08 Other Labs: Lab Results x24hrs 09/02/24 Range/Units 05:08 WBC 9.7 (4.8-10.8) x10^3/uL RBC 3.81 L (4.20-5.40) 10^6/uL Hgb 10.7 L (12.0-16.0) g/dL Hct 33.6 L (37.0-47.0) % MCV 88.2 (81.0-99.0) fL MCH 28.1 (27.0-31.0) pg MCHC 31.8 L (32.0-36.0) g/dL RDW 13.8 (12.0-15.0) % Plt Count 310 (130-450) 10^3/uL MPV 9.8 (7.9-10.8) fL Neut # (Auto) 6.9 H (1.5-6.6) 10^3/uL Lymph # (Auto) 1.6 (1.5-3.5) 10^3/uL [place] # (Auto) 1.1 H (0.0-1.0) 10^3/uL Eos # (Auto) 0.1 (0.0-0.7) 10^3/uL Baso # (Auto) 0.0 (0.0-0.1) 10^3/uL Absolute Nucleated RBC 0.00 x10^3/uL Nucleated RBC % 0.0 /100WBC Sodium 134 L (135-145) mmol/L Potassium 3.5 (3.5-4.5) mmol/L Chloride 102 (101-111) mmol/L Carbon Dioxide 25 (21-32) mmol/L Anion Gap 7.0 (6-13) BUN 15 (6-20) mg/dL Creatinine 0.8 (0.6-1.3) mg/dL Estimated GFR (MDRD) 71 L (>89) Glucose 110 H (74-104) mg/dL Calcium 8.7 (8.5-10.3) mg/dL Diagnostic Imaging Diagnostic Imaging Results: positive Final report reviewed Assessment/Plan Problem List (1) Diverticular disease of intestine with perforation and abscess: Impression: * Patient is doing much better clinically with significant improvement in pain * Leukocytosis has resolved * She is afebrile and with normal vital signs * She is tolerating p.o. well * Will continue IV Zosyn and clarify with surgery but I believe at this point she is unlikely to require IR drainage of the abscess unless things were to change clinically overnight (2) Abdominal pain: Impression: * As above, resolved Qualifiers: Abdominal location: right lower quadrant Qualified Code(s): R10.31 - Right lower quadrant pain
[2024-09-02 23:52] VITALS: O2SAT 96
[2024-09-03 05:02] LABS: BASOPHILS # (AUTO) 0.1 10^3/uL (0.0-0.1); BASOPHILS % (AUTO) 1.1 %; EOSINOPHILS # (AUTO) 0.2 10^3/uL (0.0-0.7); EOSINOPHILS % (AUTO) 4.1 %; HCT - HEMATOCRIT 33.4 % (37.0-47.0); HGB - HEMOGLOBIN 10.5 g/dL (12.0-16.0); LYMPHOCYTES # (AUTO) 2.1 10^3/uL (1.5-3.5); LYMPHOCYTES % (AUTO) 38.7 %; MEAN CORPUSCULAR HEMOGLOBIN 27.6 pg (27.0-31.0); MEAN CORPUSCULAR HGB CONC 31.4 g/dL (32.0-36.0); MEAN CORPUSCULAR VOLUME 87.7 fL (81.0-99.0); MEAN PLATELET VOLUME 9.9 fL (7.9-10.8); MONOCYTES # (AUTO) 0.6 10^3/uL (0.0-1.0); MONOCYTES % (AUTO) 11.1 %; NEUTROPHILS # (AUTO) 2.4 10^3/uL (1.5-6.6); NEUTROPHILS % (AUTO) 44.8 %; PLT - PLATELET COUNT 350 10^3/uL (130-450); RED BLOOD COUNT 3.81 10^6/uL (4.20-5.40); RED CELL DISTRIBUTION WIDTH 13.7 % (12.0-15.0); WHITE BLOOD COUNT 5.4 x10^3/uL (4.8-10.8)
[2024-09-03 05:16] LABS: CALCIUM 9.2 mg/dL (8.5-10.3); CREATININE 0.7 mg/dL (0.6-1.3); POTASSIUM 3.7 mmol/L (3.5-4.5)
[2024-09-03 08:46] VITALS: BP 118/71; TEMP 97.7
--- NOTE | 2024-09-03 12:02 | PROVIDER PROGRESS NOTE ---
Subjective General Admit Date: 09/01/24 Other Other Information/Narrative: WBC normal x2 days. Tolerating regular diet (840cc yesterday). Ambulating halls comfortably. HDN/AF. Exam Exam Vital Signs: Vital Signs x48h Temp Pulse Resp BP Pulse Ox 09/03/24 08:44 36.5 C 64 16 118/71 96 Impression/Plan Problem List (1) Diverticular disease of intestine with perforation and abscess: Plan: Clinically improved and stable. OK to DC home. May follow up with me in clinic to discuss colonoscopy and fdc expectations regarding diverticulitis. Vale Loyd DO, FACS General Sur[facility], [facility]
--- NOTE | 2024-09-03 13:39 | Discharge Summary ---
"Discharge Summary Admit Date: 09/01/24 Discharge Date: 09/03/24 Discharging Provider: Dr Russel Junior MD DIAGNOSES Admission Diagnoses: Diverticular disease of intestine with perforation and abscess Abdominal pain Discharge Diagnoses with Status of Each Condition: Diverticular disease of intestine with perforation and abscess - Improved Abdominal pain - Stable HPI History of Present Illness: Patient is a healthy 74-year-old female with a PMH of diverticulosis who presents to the ED with a 2-day history of right lower quadrant abdominal pain that radiates into the right groin. This follows a series of similar episodes over the last few weeks that was initially associated with fever that only lasted for 1 day followed by improvement of the abdominal pain then intermittent returns. Patient states the pain is moderate to severe at times, and intermittent and crampy in nature. It is not alleviated with any particular thing or aggravated by any particular thing. With the exception of the fever almost 2 weeks ago, she has not had any other associated fever along with that. She denies any nausea or vomiting. Denies any GI history or previous abdominal surgeries. She denies any prior episodes of diverticulitis. Here in the ED, the patient was hemodynamically stable. Her lab work was remarkable for a WBC of [address] abdomen pelvis does show evidence of a perforated diverticular abscess measuring approximately 3 cm. ED attending consulted general surgery regarding this finding and it was determined that surgical intervention was not immediately necessary. The radiologist did comment that this abscess would be amenable to IR drainage in the ED attending, Dr. Godfrey, discussed this with the radiologist on-call and he confirmed that if necessary this could be done at this facility, but per surgery otherwise this could be managed with IV antibiotics and the patient was started on IV Zosyn in the ED and admission was requested. CONSULTS | PROCEDURES Consultations: General Surgery HOSPITAL COURSE Hospital Course: The patient was admitted to the medical floor. She was treated with IV Zosyn 3.75 g every 6 hours and she did very well. She never had recurrence of fever, her abdominal pain was essentially gone after the first night. She was tolerating a regular diet, ambulating in the halls independently and had resolution of leukocytosis on the morning after admission and it remained normal throughout the hospital stay. She was seen by general surgery and given her significant improvement and favorable clinical course it was determined that she did not require IR drainage of the Abscess. She was given referral to follow-up with Dr. Loyd in the general surgery clinic and at the patient's request, I am also helping to facilitate a referral to gastroenterology at the [facility] GI clinic. ALLERGIES Allergies Allergy/AdvReac Type Severity Reaction Status Date / Time No Known Drug Allergies Allergy Verified 09/01/24 12:26 MEDICATIONS Ambulatory Orders Medication Instructions Recorded Confirmed estradiol 0.01% (0.1 mg/gram) 0.5 g vaginal .COMPLEX # 42.5 grams 08/09/24 09/01/24 vaginal cream amoxicillin 875 mg-potassium 1 tab PO BID 7 days #14 t abs 09/03/24 clavulanate 125 mg tablet PHYSICAL EXAM AT DISCHARGE Vital Signs: Vital Signs x48h Temp Pulse Resp BP Pulse Ox 09/03/24 08:44 36.5 C 64 16 118/71 96 General Appearance: positive No acute distress and Alert Respiratory: positive No respiratory distress and Breath sounds nml; negative Wheezes Cardiovascular: positive Regular rate & rhythm, No murmur and No gallop Abdomen: positive Non-tender, No organomegaly, Nml bowel sounds and No distention Skin: positive Color nml Extremities: positive Nml appearance Neurologic/Psychiatric: positive Oriented x3, CN's nml (2-12) and Motor nml LABS 09/03/24 04:23 09/03/24 04:23 DIAGNOSTIC IMAGING Diagnostic Imaging Results: Final report reviewed TIME SPENT Time Spent in Discharge (Minutes): 48 Discharge Plan Discharge Patient Disposition: 01 Home, Self Care Condition: Serious Medically Cleared Date:: 09/03/24 Prescriptions: New amoxicillin-pot clavulanate 875-125 mg tablet 1 tab PO BID 7 Days Qty: 14 0RF Continued estradiol 0.01 % (0.1 mg/gram) cream 0.5 g vaginal .COMPLEX Qty: 42.5 0RF Rx Instructions: 0.5 grams vaginally three nights per week Activity Restrictions: Activity as Tolerated Activity Restrictions/Additional Instructions: Avoid heavy lifting Diet: Regular Health Concerns: As we discussed, you were admitted with diverticulitis with an abscess and perforation. This is a complication that can sometimes arise in patients who have diverticulosis. It is difficult to say exactly why this happens sometimes, but one of the things I would try to do is monitor your stools and make sure they are soft and you are not having to strain often or becoming constipated. Otherwise, including adequate fiber in your diet (try to aim for 30-35gms), maintaining a healthy weight which you already do, are good steps that you can take to prevent complications of diverticulosis as much as possible. But even patients who are doing everything right, may occasionally suffer from cases of diverticulitis as well as further complications like abscess and perforation. Fortunately, you are otherwise quite healthy and this helped in your recovery and things have gone very well. After treating you with IV antibiotics for 3 days, you have had no fever, your white blood cell count is normal, and your abdominal pain is significantly improved. All of this well tolerating a regular diet. This is all very reassuring and meets the criteria for transitioning him to oral antibiotics. In this case, I am recommending Augmentin twice daily for an additional 7 days to complete a total 10-day course of antibiotic treatment. I will try to get you seen by the fire hydrant mechanic office that you requested, and Dr. Joyner would like to see you in the general surgery office in 1 month. They will call you to reach out and make an appointment. Please keep in mind, if you have any worsening abdominal pain, fevers, or other symptoms concerning for the recurrence of your condition, please do not hesitate to come back to the emergency room to get checked again. Otherwise, you should be able to do most of what you want to do in daily life such as eating, daily chores, but please try to avoid lifting heavy objects more than 10 to 12 pounds or any sort of strain on your abdomen such as pushing large or heavy objects. Print Language: Mongolian Patient Instructions: Diverticulitis Dc"
== END 2024-09-03 14:55 | disposition home or self-care (01) | DRG 392 ==
LOC: ED 12:05 → MS2 14:49
PROVIDERS: ADMIT Family Medicine Sports Medicine; ATTEND Family Medicine Sports Medicine
DX: K57.20 Diverticulitis of large intestine with perforation and abscess without bleeding